=== PATIENT | female | born 1960 | race Caucasian/White ===

== ENCOUNTER → 2017-02-16 | Outpatient (CLI) | payer OTHER ==
[~2017-02-16] MED LIST: ADVHFA115 INH; ALBUAER2 INH; ALEN40TA PO; CLRD24 PO; EVENING PRIMROSE OIL; FLUO20CA35 PO; MULT-506 PO; SYN25 PO; [UNRECOGNIZED DRUG - OTHER]; estroven
--- NOTE | 2017-02-16 14:24 | MAMMOGRAPHY REPORT ---
BILATERAL DIGITAL SCREENING MAMMOGRAM TOMOSYNTHESIS WITH CAD: 02/16/2017 TECHNIQUE: Breast tomosynthesis in addition to standard 2D mammography was performed. Current study was also evaluated with a Computer Aided Detection (CAD) system. COMPARISON: Comparison is made to exams dated: 02/16/2016 mammogram, 02/12/2015 mammogram, 4 mammogram, 02/09/2013 mammogram, 02/08/2012 mammogram, and 01/20/2011 mammogram - [facility]. BREAST COMPOSITION: There are scattered areas of fibroglandular density in both breasts. FINDINGS: No suspicious masses, calcifications, or areas of architectural distortion are noted in ei ther breast. There has been no significant interval change compared to prior exams. IMPRESSION: ACR BI-RADS CATEGORY 1: NEGATIVE There is no mammographic evidence of malignancy. A 1 year screening mammogram is recommended. The pa tient will receive written notification of the results. Approximately 10% of breast cancers are not detected with mammography. A negative mammographic report should not delay biopsy if a clinically suggestive mass is present. Fozia Durbin M.D. ah/:02/16/2017 11:39:08 Habilitation Worker: Brittanie TINEO(R)(M), [facility] letter sent: Normal 1/2 BI-RADS Code: ACR BI-RADS Category 1: Negative
== END | disposition home or self-care (01) ==
LOC: C.MAMM 08:50
PROVIDERS: ATTEND Family Medicine
DX: Z12.31 Encounter for screening mammogram for malignant neoplasm of breast (principal)

== ENCOUNTER → 2017-11-18 | Outpatient (CLI) | payer OTHER ==
--- NOTE | 2017-11-18 09:27 | DIAGNOSTIC IMAGING REPORT ---
(CHEST) THORAX WITHOUT CT DOSE: 548.80 mGycm HISTORY: R94.2 Abnormal PFTs (pulmonary function tests)[facility] 7.27.18 @ 9:2 TECHNIQUE: Multiaxial CT images of the chest were performed without contrast. A dose lowering technique was utilized adhering to the principles of ALARA. COMPARISON: PET CT 07/05/2007. FINDINGS: The central airways are patent. No pleural effusions. No pneumothorax. Mild volume loss within the right hemithorax with mild right mediastinal shift. This has slightly progressed. No pleural effusions. Small fat-containing left-sided Bochdalek hernia. Small linear scarlike density within the left upper lobe on image 39. There are few linear scarlike density seen within the right lung base. Interval progression of the right pleural nodularity. However, the majority of this nodularity is hyperdense and therefore favors expected pleurodesis changes. The heart is normal in size. Hepatic steatosis. The visualized spleen and adrenal glands are unremarkable. Normal caliber thoracic aorta. No mediastinal or hilar lymphadenopathy. Normal esophagus. No suspicious lytic or blastic osseous lesions. Right apical pleural-parenchymal scarring is also slightly progressed. 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 IMPRESSION: 1. Mild volume loss within the right hemithorax with mild right mediastinal shift. This has slightly progressed. This is likely due to a combination of the right apical pleural-parenchymal scarring and the progressive right pleural nodularity. The majority of the pleural nodularity is hyperdense and therefore favors expected pleurodesis changes. 2. No new focal lung consolidations to suggest pneumonia. 3. Hepatic steatosis. Electronically signed by: Sukh Corbett M.D. 11/18/2017 9:25 AM Dictated Date/Time: 11/18/2017 9:10 AM
== END | disposition home or self-care (01) ==
LOC: C.CTS 08:50
PROVIDERS: ATTEND Internal Medicine Critical Care Medicine
DX: R94.2 Abnormal results of pulmonary function studies (principal); K76.0 Fatty (change of) liver, not elsewhere classified

== ENCOUNTER → 2017-11-25 | Outpatient (CLI) | payer OTHER ==
--- NOTE | 2017-11-25 17:18 | ECHOCARDIOGRAM REPORT ---
*NOTICE TO RECEIVING REPUBLICAN AGENCY This information is strictly Confidential and protected under [place] law. [place] law prohibits you from making any further disclosure of this information unless further disclosure is expressly permitted by the written consent of the person to whom it pertains or is authorized by law. A general authorization for the release of medical or other information is not sufficient for this purpose. Hospital accepts no responsibility if the information is made available to any other person, INCLUDING THE PATIENT. Interpretation Summary * Name: SHANITA KAUFMAN Study Date: 11/25/2017 12:11 PM BP: 129/72 mmHg * Patient Location: [facility] HR: 71 * : 1960 (M/d/yyyy) Gender: Female Height: 60 in * Age: 57 yrs Ethnicity: [place] Weight: 140 lb * Ordering Physician: Sagar Abrams * Referring Physician: Sagar Abrams * Performed By: Kina Yap RDCS * * Reason For Study: Abnormal PFT * BSA: 1.6 m2 * -- Conclusions -- * Left ventricular systolic function is normal. * Grade I diastolic dysfunction, (abnormal relaxation pattern). * There is mild mitral regurgitation. Procedure Details * A complete two-dimensional transthoracic echocardiogram was performed (2D, M-mode, Doppler and color flow Doppler). Left Ventricle * The left ventricle is normal in size. * There is normal left ventricular wall thickness. * Ejection Fraction = 55-60%. * Left ventricular systolic function is normal. * Grade I diastolic dysfunction, (abnormal relaxation pattern). * The left ventricular wall motion is normal. Right Ventricle * The right ventricle is normal in size and function. * The right ventricular systolic function is normal as assessed by tricuspid annular plane systolic excursion (TAPSE) (normal >1.5 cm). Atria * The left atrial size is normal. * Right atrial size is normal. Mitral Valve * The mitral valve is grossly normal. * There is mild mitral regurgitation. Tricuspid Valve * The tricuspid valve is not well visualized, but is grossly normal. * Significant tricuspid regurgitation is absent. Aortic Valve * The aortic valve is normal in structure and function. * No hemodynamically significant valvular aortic stenosis. * There is no significant aortic regurgitation. Pulmonic Valve * The pulmonic valve is not well visualized. Great Vessels * The aortic root is normal size. Pericardium/Pleural * There is no pericardial effusion. Great Vessels * Normal inferior vena cava diameter and respiratory variation suggests normal central venous pressure. MMode 2D Measurements and Calculations IVSd 1.0 cm IVSs 1.1 cm LVIDd 4.0 cm LVIDs 2.5 cm LVPWd 1.0 cm LVPWs 1.5 cm IVS/LVPW 0.99 FS 36.2 % EDV(Teich) 68.2 ml ESV(Teich) 22.9 ml EF(Teich) 66.4 % EDV(cubed) 61.9 ml ESV(cubed) 16.1 ml EF(cubed) 74.0 % % IVS thick 8.3 % % LVPW thick 47.5 % LV mass(C)d 131.8 grams LV mass(C)dI 82.2 grams/m\S\2 LV mass(C)s 103.2 grams LV mass(C)sI 64.3 grams/m\S\2 SV(Teich) 45.3 ml SI(Teich) 28.2 ml/m\S\2 SV(cubed) 45.8 ml SI(cubed) 28.5 ml/m\S\2 Ao root diam 2.8 cm Ao root area 6.3 cm\S\2 ACS 1.6 cm LVAd ap4 19.3 cm\S\2 LVLd ap4 6.8 cm EDV(MOD-sp4) 51.3 ml EDV(sp4-el) 46.5 ml LVAs ap4 11.3 cm\S\2 LVLs ap4 5.5 cm ESV(MOD-sp4) 20.7 ml ESV(sp4-el) 19.5 ml EF(MOD-sp4) 59.6 % EF(sp4-el) 58.0 % LVAd ap2 22.5 cm\S\2 LVLd ap2 7.3 cm EDV(MOD-sp2) 62.0 ml EDV(sp2-el) 58.9 ml LVAs ap2 11.9 cm\S\2 LVLs ap2 5.8 cm ESV(MOD-sp2) 20.7 ml ESV(sp2-el) 20.7 ml EF(MOD-sp2) 66.7 % EF(sp2-el) 64.9 % LVLd %diff 6.9 % EDV(MOD-bp) 57.7 ml LVLs %diff 4.6 % ESV(MOD-bp) 21.1 ml EF(MOD-bp) 63.5 % SV(MOD-sp4) 30.6 ml SI(MOD-sp4) 19.1 ml/m\S\2 SV(MOD-sp2) 41.3 ml SI(MOD-sp2) 25.8 ml/m\S\2 SV(MOD-bp) 36.6 ml SI(MOD-bp) 22.8 ml/m\S\2 SV(sp4-el) 27.0 ml SI(sp4-el) 16.8 ml/m\S\2 SV(sp2-el) 38.2 ml SI(sp2-el) 23.8 ml/m\S\2 Doppler Measurements and Calculations MV E max emmanuelle 76.4 cm/sec MV A max emmanuelle 85.8 cm/sec MV E/A 0.89 MV dec time 0.20 sec Ao V2 max 112.1 cm/sec Ao max PG 5.0 mmHg Ao max PG (full) 1.9 mmHg LV V1 max PG 3.2 mmHg LV V1 max 88.9 cm/sec PA V2 max 89.0 cm/sec PA max PG 3.2 mmHg
== END | disposition home or self-care (01) ==
LOC: C.CPL 12:04
PROVIDERS: ATTEND Internal Medicine Critical Care Medicine
DX: R94.2 Abnormal results of pulmonary function studies (principal)